=== PATIENT | male | born 1990 | race Hispanic/Latino ===

== ENCOUNTER 2025-01-24 07:13 | Emergency (ER) | payer SELFPAY ==
--- NOTE | 2025-01-24 08:12 | RAD REPORT ---
EXAMINATION: XR LEFT ANKLE CLINICAL INDICATION: Male, 34 years old. ankle injury TECHNIQUE: 3 view radiograph of the left ankle were obtained. COMPARISON: No prior exam. FINDINGS: Mild soft tissue swelling is seen. Tiny ossific fragments along the lateral ankle have a ch ronic appearance. No acute fracture or dislocation suspected. Moderate calcaneal spurs.
--- NOTE | 2025-01-24 08:36 | EDPHYS ---
Physician Documentation [facility] Name: Dixon Khalil Age: 34 yrs Sex: Male : 1990 Arrival Date: 01/24/2025 Time: 07:13 Bed 12 Private MD: ED Physician Lemuel Layne HPI: 01/24 08:17 This 34 yrs old Male presents to ER via Ambulatory with complaints of Ankle ms3 Injury. 08:17 34-year-old male with no past medical history presents to the emergency department for ms3 left ankle pain after he rolled his ankle while getting out of his truck. Patient states when getting out he placed his foot on the ground to the ankle rolled and he heard a pop. Patient notes he can ambulate on the ankle however this exacerbates the pain. He rates his discomfort a 5/10.. Historical: - Allergies: 07:44 No Known Allergies; ll1 - Home Meds: 07:44 None [Active]; ll1 - PMHx: 07:44 None; ll1 - PSHx: 07:44 None; ll1 - Immunization history:: Adult Immunizations up to date. - Social history:: Smoking status: Patient reports the use of cigarette tobacco products, denies chronic smoking, but will smoke occasionally. ROS: 08:17 Constitutional: Negative for fever, and chills. Cardiovascular: Negative for chest ms3 pain, and palpitations. Respiratory: Negative for shortness of breath, cough, wheezing, and pleuritic chest pain, Abdomen/GI: Negative for abdominal pain, nausea, vomiting, diarrhea, and constipation, 08:17 MS/extremity: Positive for pain, swelling, tenderness, Exam: 08:17 Constitutional: This is a well developed, well nourished patient who is awake, alert, ms3 and in no acute distress. Cardiovascular: Regular rate and rhythm with a normal S1 and S2. No gallops, murmurs, or rubs. Normal PMI, no JVD. No pulse deficits. Respiratory: Lungs have equal breath sounds bilaterally, clear to auscultation and percussion. No rales, rhonchi or wheezes noted. No increased work of breathing, no retractions or nasal flaring. Abdomen/GI: Soft, non-tender, with normal bowel sounds. No distension or tympany. No guarding or rebound. No evidence of tenderness throughout. Skin: Warm, dry with normal turgor. Normal color with no rashes, no lesions, and no evidence of cellulitis. 08:17 Musculoskeletal/extremity: Extremities: noted in the left ankle: Vital Signs: 07:44 BP 165 / 103; Pulse 109; Resp 18; Pulse Ox 97% ; Weight 156.49 kg; Height 5 ft. 9 in. ; ll1 Pain 8/10; 07:44 Body Mass Index 50.95 (156.49 kg, 175.26 cm) ll1 07:44 Pain Scale: Adult ll1 MDM: 08:07 Medical Screening Exam initiated ms3 08:17 Differential diagnosis: fracture, sprain, arthritis. ms3 08:22 Data reviewed: vital signs, nurses notes, radiologic studies, and as a result, I will ms3 discharge patient. Counseling: I had a detailed discussion with the patient and/or guardian regarding the historical points, exam findings, and any diagnostic results supporting the discharge/admit diagnosis, radiology results, the need for outpatient follow up, to return to the emergency department if symptoms worsen or persist or if there are any questions or concerns that arise at home. Special discussion: I discussed with the patient/guardian in detail that at this point there is no indication for admission to the hospital. It is understood, however, that if the symptoms persist or worsen the patient needs to return immediately for re-evaluation. ED course: Discussed x-ray results with patient. Patient to follow-up with Dr. James in 2 to 3 days. Patient understands agrees with plan. All questions were answered. Patient placed in Aircast and given crutches. No signs of compartment syndrome present. On reevaluation patient alert and orient x 4, no apparent distress, nontoxic-appearing. Return precautions discussed include worsening symptoms, or any other concerns.. 01/24 07:48 Order name: Ankle Left 3 View XRAY; Complete Time: 08:16 bd 01/24 08:16 Order name: Ankle Splint: Aircast; Complete Time: 09:47 ms3 01/24 08:16 Order name: Crutches; Complete Time: 09:47 ms3 Administered Medications: No medications were administered Disposition Summary: 01/24/25 08:36 Discharge Ordered Notes: Location: Home ms3 Condition: Stable ms3 Diagnosis - Pain in left ankle and joints of left foot ms3 - Sprain of ankle ms3 Followup: ms3 - With: Gallo James MD - When: 2 - 3 days - Reason: Recheck today's complaints Discharge Instructions: - Discharge Summary Sheet ms3 - Crutch Use, Adult, [id number] ms3 - Ankle Sprain, [id number] ms3 - Ankle Pain ms3 Forms: - Work release form aa5 - Medication Reconciliation Form ms3 - Antibiotic Education ms3 - Prescription Opioid Use ms3 - Patient Portal Instructions ms3 - Leadership Thank You Letter ms3 Signatures: Dispatcher [employer] Vika David RN RN ll1 Lemuel Layne DO DO ms3
--- NOTE | 2025-01-24 08:36 | ER ---
Nurse's Notes [facility] Name: Dixon Khalil Age: 34 yrs Sex: Male : 1990 Arrival Date: 01/24/2025 Time: 07:13 Bed 12 Private MD: Diagnosis: Pain in left ankle and joints of left foot;Sprain of ankle Presentation: 01/24 07:44 Chief complaint: Patient states: L ankle pain after getting out of his truck wrong this ll1 morning, rolled ankle. Coronavirus screen: Client denies travel out of the [place] in the last 14 days. At this time, the client does not indicate any symptoms associated with coronavirus-19. Ebola Screen: Patient denies travel to an Ebola-affected area in the 21 days before illness onset. Initial Sepsis Screen: Does the patient meet any 2 criteria? No. Patient's initial sepsis screen is negative. Does the patient have a suspected source of infection? No. Patient's initial sepsis screen is negative. Risk Assessment: Do you want to hurt yourself or someone else? Patient reports no desire to harm self or others. Onset of symptoms was January 24, 2025. 07:44 Method Of Arrival: Ambulatory ll1 07:44 Acuity: MICHAEL 4 ll1 Triage Assessment: 07:46 General: Appears uncomfortable, Behavior is calm, cooperative, appropriate for age. ll1 Pain: Complains of pain in L ankle. Musculoskeletal: Reports pain in L ankle. Historical: - Allergies: 07:44 No Known Allergies; ll1 - Home Meds: 07:44 None [Active]; ll1 - PMHx: 07:44 None; ll1 - PSHx: 07:44 None; ll1 - Immunization history:: Adult Immunizations up to date. - Social history:: Smoking status: Patient reports the use of cigarette tobacco products, denies chronic smoking, but will smoke occasionally. Screenin:00 [facility] ED Fall Risk Assessment (Adult) History of falling in the last 3 months, aa5 including since admission Yes- single mechanical fall (1 pt) Confusion or Disorientation No (0 pts) Intoxicated or Sedated No (0 pts) Impaired Gait Yes (1 pt) Mobility Assist Device Used No (0 pt) Altered Elimination No (0 pt) Score/Fall Risk Level 0 - 2 = Low Risk Oriented to surroundings, Maintained a safe environment, Educated pt \T\ family on fall prevention, incl call for assistance when getting out of bed. Abuse screen: Denies threats or abuse. Nutritional screening: No deficits noted. Tuberculosis screening: No symptoms or risk factors identified. Assessment: 08:00 General: Appears comfortable, Behavior is calm, cooperative. Pain: Complains of pain in aa5 left ankle Pain currently is 8 out of 10 on a pain scale. Quality of pain is described as aching, throbbing. Neuro: Level of Consciousness is awake, alert, obeys commands, Oriented to person, place, time, situation. Cardiovascular: Patient's skin is warm and dry. Respiratory: Airway is patent Respiratory effort is even, unlabored, Respiratory pattern is regular, symmetrical. GI: No signs and/or symptoms were reported involving the gastrointestinal system. : No signs and/or symptoms were reported regarding the genitourinary system. EENT: No signs and/or symptoms were reported regarding the EENT system. Derm: Skin is pink, warm \T\ dry. Musculoskeletal: Reports pain in left ankle. 09:45 Reassessment: Patient is alert, oriented x 3, equal unlabored respirations, skin aa5 warm/dry/pink. Vital Signs: 07:44 BP 165 / 103; Pulse 109; Resp 18; Pulse Ox 97% ; Weight 156.49 kg; Height 5 ft. 9 in. ; ll1 Pain 8/10; 07:44 Body Mass Index 50.95 (156.49 kg, 175.26 cm) ll1 07:44 Pain Scale: Adult ll1 ED Course: 07:17 Patient arrived in ED. cj3 07:40 Lemuel Layne DO is Attending Physician. ms3 07:46 Triage completed. ll1 07:46 Arm band placed on. ll1 07:52 Eliana Holley, RN is Primary Nurse. aa5 08:00 Patient has correct armband on for positive identification. Bed in low position. Call aa5 light in reach. Side rails up X 1. 08:08 Ankle Left 3 View XRAY In Process Unspecified. EDMS 08:31 Jeannette Gamboa PA-C is PHCP. sb4 08:35 Gallo James MD is Referral Physician. ms3 09:45 No provider procedures requiring assistance completed. Patient did not have IV access aa5 during this emergency room visit. Administered Medications: No medications were administered Medication: 08:00 VIS not applicable for this client. aa5 Outcome: 08:36 Discharge ordered by . ms3 09:45 Discharged to home ambulatory, with crutches, aa5 :45 Condition: stable 09:45 Discharge instructions given to patient, Instructed on discharge instructions, follow up and referral plans. Demonstrated understanding of instructions, follow-up care, 09:49 Patient left the ED. aa5 Signatures: Dispatcher [employer] EDMS Eliana Holley, RN RN aa5 Vika Chambers, GUSTAVO RN ll1 Lemuel Layne, DO ms3 Jeannette Gamboa, PA-C PA-C sb4 Eloina Coffey cj3 Corrections: (The following items were deleted from the chart) 10:51 10:00 No provider procedures requiring assistance completed. aa5 aa5 10:51 10:00 Patient did not have IV access during this emergency room visit. aa5 aa5
[2025-01-24 10:13] VITALS: BP 165/103; O2SAT 97
== END 2025-01-24 09:49 | disposition home or self-care (01) ==
LOC: ER 07:13
DX: S93.402A Sprain of unspecified ligament of left ankle, initial encounter (principal); F17.210 Nicotine dependence, cigarettes, uncomplicated
CPT/HCPCS: 99282